=== PATIENT | female | born 1980 | race American Indian/Alaskan Native ===

== ENCOUNTER 2020-10-02 03:43 | Emergency (ER) | payer MEDICARE ==
[2020-10-02] MEDS ORDERED: ONDANSETRON 4 MG/2 ML INJ IV ONE (05:14)
[2020-10-02] MEDS ORDERED: SODIUM CHLORIDE 0.9% 1000 ML 1,000 ML IV ONE (05:14)
[2020-10-02] MEDS ORDERED: MORPHINE 4 MG/1 ML INJ IV ONE (05:14)
[2020-10-02] MEDS ORDERED: DICYCLOMINE 20 MG/2 ML INJ IM ONE (05:14)
[2020-10-02] MEDS ORDERED: FAMOTIDINE 20 MG/2 ML INJ IV ONE (05:14)
[2020-10-02 05:17] LABS: Basophils # (Auto) 0.1 K/mm3 (0.0-0.1); Basophils % (Auto) 0.5 % (0.0-1.8); Eosinophils # (Auto) 0.1 K/mm3 (0.0-0.4); Eosinophils % (Auto) 0.9 % (0.0-4.3); Hematocrit 38.8 % (30.3-42.9); Hemoglobin 13.2 gm/dl (10.1-14.3); Lymphocytes # (Auto) 1.5 K/mm3 (1.2-5.4); Lymphocytes % (Auto) 14.8 % (13.4-35.0); Mean Corpuscular HGB Conc 34 % (30-34); Mean Corpuscular Volume 86 fl (79-97); Monocytes # (Auto) 1.2 K/mm3 (0.0-0.8); Monocytes % (Auto) 12.3 % (0.0-7.3); Platelet Count 292 K/mm3 (140-440); Red Blood Count 4.53 M/mm3 (3.65-5.03); Red Cell Distribution Width 13.3 % (13.2-15.2)
--- NOTE | 2020-10-02 05:29 | Emergency Department Report ---
<CORA ARAUZ - Last Filed: 10/02/20 05:27> ED Abdominal Pain HPI - General Chief Complaint: Abdominal Pain Stated Complaint: ABD PAIN Time Seen by Provider: 10/02/20 05:13 Source: patient Mode of arrival: Ambulatory Limitations: No Limitations - History of Present Illness Initial Comments: Patient is a 40-year-old F [place] female with past medical history of diverticulitis who is presenting with some diffuse abdominal pain. Patient states that she has had multiple episodes of nausea vomiting. She denies diarrhea. States she has not had diarrhea in the past with her diverticulitis. Patient states the pain is 7 out of 10 in severity and is crampy in nature. States has been off and on for the last almost a month but is worsened and become more frequent. She denies cough cold congestion fevers or chills. - Related Data Previous Rx's Medication Instructions Recorded Last Taken Type Amoxicillin/Potassium Clav 1 each PO BID #14 tablet 10/02/20 Unknown Rx [Augmentin 875-125 Tablet] HYDROcodone/APAP 5-325 [[place] 1 each PO Q6HR PRN #10 tablet 10/02/20 Unknown Rx 5/325] Ondansetron [Zofran Odt] 4 mg PO Q8HR PRN #12 tab.rapdis 10/02/20 Unknown Rx Allergies Allergy/AdvReac Type Severity Reaction Status Date / Time ibuprofen [From Motrin] Allergy Swelling Verified 10/02/20 03:58 ED Review of Systems Comment: All other systems reviewed and negative ED Past Medical Hx - Past Medical History Previous Medical History?: Yes Hx GERD: Yes Hx Kidney Stones: Yes Additional medical history: Diverticolosis. Cholesterol Stones. Esophageal Hernia - Surgical History Past Surgical History?: Yes Additional Surgical History: C- section. Right ankle - Social History Smoking Status: Current Every Day Smoker Substance Use Type: None - Medications Home Medications: Home Medications Medication Instructions Recorded Confirmed Last Taken Type Amoxicillin/Potassium Clav 1 each PO BID #14 tablet 10/02/20 Unknown Rx [Augmentin 875-125 Tablet] HYDROcodone/APAP 5-325 [[place] 1 each PO Q6HR PRN #10 tablet 10/02/20 Unknown Rx 5/325] Ondansetron [Zofran Odt] 4 mg PO Q8HR PRN #12 tab.rapdis 10/02/20 Unknown Rx ED Physical Exam - General Limitations: No Limitations General appearance: alert, in distress - Head Head exam: Present: atraumatic, normocephalic - Eye Eye exam: Present: normal appearance - ENT ENT exam: Present: normal orophraynx, mucous membranes moist - Neck Neck exam: Present: normal inspection - Respiratory Respiratory exam: Present: normal lung sounds bilaterally. Absent: respiratory distress, wheezes, rales, rhonchi - Cardiovascular Cardiovascular Exam: Present: regular rate, normal rhythm, normal heart sounds. Absent: systolic murmur, diastolic murmur, rubs, gallop - GI/Abdominal GI/Abdominal exam: Present: soft, tenderness (Diffuse), normal bowel sounds. Absent: distended, guarding, rebound, rigid - Extremities Exam Extremities exam: Present: normal inspection - Back Exam Back exam: Present: normal inspection - Neurological Exam Neurological exam: Present: alert, oriented X3 - Psychiatric Psychiatric exam: Present: normal affect, normal mood - Skin Skin exam: Present: warm, dry, intact, normal color. Absent: rash ED Medical Decision Making - Lab Data Result diagrams: 10/02/20 04:35 ED Disposition Clinical Impression: Diverticulitis Disposition: DC-01 TO HOME OR SELFCARE Condition: Stable Instructions: Diverticulitis, Abdominal Pain (ED) Additional Instructions: Please follow-up with a primary care physician. I have given you a referral for a local primary care physician as well as a primary care clinic. I am also giving you a referral for [facility] to follow-up regarding your abdominal pains and diverticulitis. Try to increase your oral rehydration. Take all medications as prescribed. You have been prescribed a medication that is sedating and therefore should not be taken prior to driving, working, and responsible for children and in no way should be mixed with alcohol of any quantity. Return to the emergency department with any worsening of your symptoms, new or concerning symptoms not addressed during this current emergency department visit, or with any acute distress. Prescriptions: Amoxicillin/Potassium Clav [Augmentin 875-125 Tablet] 1 each PO BID #14 tablet HYDROcodone/APAP 5-325 [[place] 5/325] 1 each PO Q6HR PRN #10 tablet PRN Reason: Pain Ondansetron [Zofran Odt] 4 mg PO Q8HR PRN #12 tab.rapdis PRN Reason: Nausea Referrals: [facility] [Provider Group] - 3-5 Days [facility] [Provider Group] - 3-5 Days MARLY TORRES MD [Staff Physician] - 3-5 Days <CARLOS JOYA S - Last Filed: 10/02/20 10:22> ED Review of Systems ROS: Stated complaint: ABD PAIN Other details as noted in HPI ED Course Vital Signs 10/02/20 10/02/20 10/02/20 03:55 06:06 06:45 Temperature 98.3 F Pulse Rate 97 H 74 Respiratory 18 18 18 Rate Blood Pressure 110/74 Blood Pressure 108/59 [Left] O2 Sat by Pulse 97 97 97 Oximetry 10/02/20 10/02/20 10/02/20 07:15 07:18 07:31 Temperature Pulse Rate 88 68 76 Respiratory 18 17 14 Rate Blood Pressure 97/53 Blood Pressure 101/54 [Left] O2 Sat by Pulse 96 92 94 Oximetry 10/02/20 10/02/20 08:31 08:45 Temperature Pulse Rate 94 H 59 L Respiratory 17 15 Rate Blood Pressure 103/56 103/56 Blood Pressure [Left] O2 Sat by Pulse 96 95 Oximetry ED Medical Decision Making - Lab Data Result diagrams: 10/02/20 04:35 10/02/20 04:35 - Radiology Data Radiology results: report reviewed CT ABDOMEN AND PELVIS WITH CONTRAST INDICATION: Pt complains of diffuse abd pain with nausea and vomiting. TECHNIQUE: Axial CT images were obtained through the abdomen and pelvis after 100 cc IV contrast. All CT scans at this location are performed using CT dose reduction for ALARA by means of automated exposure control. COMPARISON: None available. FINDINGS: LOWER CHEST: No significant abnormality. LIVER: No significant abnormality. GALLBLADDER: No significant abnormality. BILE DUCTS: No significant abnormality. PANCREAS: No significant abnormality. SPLEEN: No significant abnormality. ADRENALS: No significant abnormality. RIGHT KIDNEY and URETER: Single nonobstructing 3 mm right renal stone. LEFT KIDNEY and URETER: No significant abnormality. STOMACH and SMALL BOWEL: No significant abnormality. COLON: Moderate colonic diverticulosis. Mild bowel wall thickening and pericolonic inflammation splenic flexure portion of colon characteristic for mild uncomplicated diverticulitis. APPENDIX: Normal. PERITONEUM: No free fluid. No free air. No fluid collection. LYMPH NODES: No significant adenopathy. AORTA and ARTERIES: No significant abnormality. IVC and VEINS: No significant abnormality. URINARY BLADDER: No significant abnormality. REPRODUCTIVE ORGANS: No significant abnormality. ADDITIONAL FINDINGS: None. SKELETAL SYSTEM: No significant abnormality. IMPRESSION: 1. Mild uncomplicated diverticulitis involving splenic flexure of colon. 2. Moderate colonic diverticulosis - Medical Decision Making This patient was signed out to me by the overnight ER physician, Dr. Arauz, to follow the CT results and assist with disposition. CT scan of the abdomen pelvis with IV contrast shows mild diverticulitis at the splenic colonic flexure. I reviewed her labs and they are mostly unremarkable including CBC, metabolic panel, urinalysis and the patient is not . I gave the patient a dose of IV analgesia and upon reevaluation she is feeling improved and appears to be resting comfortably. Vital signs reassuring throughout her ED course including being afebrile. She was given a dose of Zosyn. She will be discharged home with outpatient referrals for primary care and gastroenterology. The patient will be placed on Augmentin for the diverticulitis. She will return to the emergency department with any worsening of her symptoms or with any acute distress. Critical Care Time: No Critical care attestation.: If time is entered above; I have spent that time in minutes in the direct care of this critically ill patient, excluding procedure time. ED Disposition Is pt being admited?: No
[2020-10-02 05:43] LABS: Alanine Aminotransferase 19 units/L (7-56); Albumin 4.2 g/dL (3.9-5); BUN/Creatinine Ratio 18; Blood Urea Nitrogen 11 mg/dL (7-17); Calcium 9.4 mg/dL (8.4-10.2); Hemolysis Index 0
[2020-10-02] MEDS ORDERED: HYDROmorphone 1 MG/1 ML INJ IV ONE (06:28)
[2020-10-02] MEDS ORDERED: METOCLOPRAMIDE 10 MG/2 ML INJ IV ONE (06:41)
--- NOTE | 2020-10-02 08:22 | Cat Scan Report ---
CT ABDOMEN AND PELVIS WITH CONTRAST INDICATION: Pt complains of diffuse abd pain with nausea and vomiting. TECHNIQUE: Axial CT images were obtained through the abdomen and pelvis after 100 cc IV contrast. All CT scans at this location are performed using CT dose reduction for ALARA by means of automated exposure contr ol. COMPARISON: None available. FINDINGS: LOWER CHEST: No significant abnormality. LIVER: No significant abnormality. GALLBLADDER: No significant abnormality. BILE DUCTS: No significant abnormality. PANCREAS: No significant abnormality. SPLEEN: No significant abnormality. ADRENALS: No significant abnormality. RIGHT KIDNEY and URETER: Single nonobstructing 3 mm right renal stone. LEFT KIDNEY and URETER: No significant abnormality. STOMACH and SMALL BOWEL: No significant abnormality. COLON: Moderate colonic diverticulosis. Mild bowel wall thickening and pericolonic inflammation splen ic flexure portion of colon characteristic for mild uncomplicated diverticulitis. APPENDIX: Normal. PERITONEUM: No free fluid. No free air. No fluid collection. LYMPH NODES: No significant adenopathy. AORTA and ARTERIES: No significant abnormality. IVC and VEINS: No significant abnormality. URINARY BLADDER: No significant abnormality. REPRODUCTIVE ORGANS: No significant abnormality. ADDITIONAL FINDINGS: None. SKELETAL SYSTEM: No significant abnormality. IMPRESSION: 1. Mild uncomplicated diverticulitis involving splenic flexure of colon. 2. Moderate colonic diverticulosis Signer Name: Barry Warner MD Signed: 10/02/2020 8:17 AM Workstation Name: [id number]
[2020-10-02] MEDS ORDERED: PIPERACIL/TAZOBACTA 4.5/NS 100 4.5 GM/100 ML VIAL IV ONE (08:40)
[2020-10-02 08:56] VITALS: BP 103/56
[2020-10-02 09:37] LABS: Bilirubin,Urine NEG (Negative); Blood,Urine SM (Negative); Color,Urine Yellow (Yellow); Mucus,Urine FEW /HPF; Protein,Urine <15 mg/dL mg/dL (Negative); Urobilinogen,Urine < 2.0 mg/dL (<2.0)
== END 2020-10-02 10:29 | disposition home or self-care (01) ==
LOC: ED 03:43
DX: K57.92 Diverticulitis of intestine, part unspecified, without perforation or abscess without bleeding (principal); K21.9 Gastro-esophageal reflux disease without esophagitis; F17.200 Nicotine dependence, unspecified, uncomplicated; Z88.6 Allergy status to analgesic agent; Z79.899 Other long term (current) drug therapy; Z98.890 Other specified postprocedural states
CPT/HCPCS: 36415; 74177; 80053; 81001; 83690; 84703; 85025; 96361; 96365; 96372; 96375; 99284; J0500; J1170; J2270; J2405; J2543; J2765; J7030; Q9967